=== PATIENT | female | born 1975 | race Caucasian/White ===

== ENCOUNTER 2016-11-30 15:04 | Emergency (ER) | payer SELFPAY ==
--- NOTE | ~2016-11-30 | ER ---
PATIENT'S NAME: JANUSZ HEBERT [facility] AGE: 41 Y [address] ROOM: [place] [address] LOCATION: [facility] ADMIT DATE: 11/30/2016 ER/Outpatient Report DISCHARGE DATE: 11/30/2016 FAMILY PHYSICIAN: Jorge Diamond MD ATTENDING PHYSICIAN: Sindy Crowley Time of Patient's Arrival: 1504 hours. Time of Patient's Evaluation: 1520 hours. CHIEF COMPLAINT: Migraine headache. HISTORY OF PRESENT ILLNESS: This is a 41-year-old female who presents to the ER. States she has developed a migraine headache approximately 8 hours prior to arrival. She has a history of migraine headaches and is similar to her previous headaches, is located on the right side of her head. It is causing her to have photophobia, nausea, and vomiting. She states that she has had no recent illness, no fever or chills. She says it has been approximately 2 years since her last headache. She states that she just started doing some Advocare and maybe that is the cause of this headache. ALLERGIES: NO KNOWN ALLERGIES. MEDICATIONS: None. PAST MEDICAL HISTORY: Migraines. PAST SURGERIES: Hysterectomy. SOCIAL HISTORY: Drinks alcohol socially. REVIEW OF SYSTEMS: A 10-point review of systems was completed and was negative with the exception of those discussed in the HPI. PHYSICAL EXAMINATION: VITAL SIGNS: Height 5 feet 5 inches stated, weight 109.2 kg taken, blood pressure is 190/109, pulse 80, respirations 22, temperature 98.5 degrees tympanically, and saturations 96% on room air. Sandra Coma Score is 15. PATIENT'S NAME: JANUSZ HEBERT [facility] AGE: 41 Y [address] ROOM: [place], [place] [address] LOCATION: [facility] ADMIT DATE: 11/30/2016 ER/Outpatient Report DISCHARGE DATE: 11/30/2016 FAMILY PHYSICIAN: Jorge Diamond MD ATTENDING PHYSICIAN: Sindy Crowley GENERAL: Alert, calm, well-developed female, in no acute distress. HEENT: Head: Normocephalic. Eyes: Pupils are equal and reactive light. Ears: TMs display good light reflexes bilaterally. Auditory canals clear. Nose: Turbinates pink with no drainage. Throat: No exudates or erythema. She does have moist mucous membranes. NECK: Supple. No lymphadenopathy. No nuchal rigidity. LUNGS: Clear to auscultation bilaterally. No wheeze or crackles. Normal respiratory effort. HEART: Regular rate and rhythm. No lifts, thrills, or murmurs. EXTREMITIES: No clubbing, cyanosis, or edema. Full range of motion of all limbs. LABORATORY DATA AND X-RAYS: None were done. IMPRESSION: Migraine headache. ASSESSMENT AND PLAN: I did review the patient's chart. The patient states the Nubain does not set well with her and she would just like something for anxiety incident. I then gave her Toradol 60 mg, Phenergan 50 mg, and Ativan 1 mg IM here in the ER. She did tolerate these well. We will dismiss her to home. She needs a rest in a quiet, dark area. Continue to push fluids, and follow up with primary care physician for followup care. The patient understands and agrees with care. KYLAH TIPTON PA-C FOR MD JOSE ANTONIO MALONE/amanda /[id number] d: 12/01/16 0012 t: 12/05/16 0647, OUTPATIENT REPORT
== END 2016-11-30 16:00 | disposition disaster alternative care site (69) ==
LOC: GMED 15:04
DX: G43.909 Migraine, unspecified, not intractable, without status migrainosus (principal); Z90.710 Acquired absence of both cervix and uterus
CPT/HCPCS: J1885; J2060; J2550

== ENCOUNTER 2017-05-01 09:15 | Emergency (ER) | payer SELFPAY ==
--- NOTE | ~2017-05-01 | ER ---
PATIENT'S NAME: JANUSZ SULLIVAN [facility] AGE: 41 Y [address] ROOM: [place] [id number] LOCATION: [facility] ADMIT DATE: 05/01/2017 ER/Outpatient Report DISCHARGE DATE: 05/01/2017 FAMILY PHYSICIAN: Jorge Diamond MD ATTENDING PHYSICIAN: Chano Templeton CHIEF COMPLAINT: Migraine. HISTORY OF PRESENT ILLNESS: Ms. uSllivan presents for evaluation of migraine. She has had these migraines in the past but has been doing well except for about a few weeks ago she had a similar episode. Prior to that it had been about 2 years since her last migraine. She states this is her typical headache. The headache starts in the middle of the night, typically wakes her up, causes some neck discomfort and mild photophobia. There is absolutely nothing new about this headache after pressing the patient for this. She is requesting her usual cocktail to break her headache and to be discharged. She describes this as a regular headache, it is not thunderclap, in is not sudden onset. She denies any difficulty doing any tasks and has no focal deficits. PAST MEDICAL HISTORY: Documented on the record and reviewed by me. SOCIAL HISTORY: Documented on the record and reviewed by me. MEDICATIONS: Documented on the record and reviewed by me. ALLERGIES: DOCUMENTED ON THE RECORD AND REVIEWED BY ME. REVIEW OF SYSTEMS: All systems were reviewed and negative except as noted in the HPI. PHYSICAL EXAMINATION: VITAL SIGNS: Blood pressure is 182/111, pulse 80, respiratory rate 16, temperature 97.1, SpO2 is 99% on room air. Pain is rated 8/10. GENERAL: An age appropriate female, sitting upright in a somewhat darkened room, in no apparent pain or distress. NEUROLOGIC: Awake and alert. GCS 15. No focal deficits. No asymmetry. HEENT: Normocephalic, atraumatic. Eyes are PERRL. The oropharynx is clear. NECK: Supple with full range of motion. No meningismus. EXTREMITIES: Warm, well formed, and well perfused with no obvious PATIENT'S NAME: JANUSZ SULLIVAN [facility] AGE: 41 Y [address] ROOM: [place], [place] [address] LOCATION: [facility] ADMIT DATE: 05/01/2017 ER/Outpatient Report DISCHARGE DATE: 05/01/2017 FAMILY PHYSICIAN: Jorge Diamond MD ATTENDING PHYSICIAN: Chano Templeton abnormalities. HEART: Regular rate and rhythm with no murmurs. LUNGS: Clear to auscultation bilateral with no rhonchi, wheezes, or rales. ABDOMEN: Soft, nontender, with no obvious abnormalities. Back is normal to inspection and palpation. SKIN: Grossly intact. LABORATORY DATA AND X-RAYS: None. IMPRESSION: Typical migraine. EMERGENCY DEPARTMENT COURSE: The patient was seen and evaluated at bedside. She was given her typical cocktail of Toradol, Ativan, and Phenergan IM at 60, 1 mg, and 50 mg respectively. I offered to give her some fluids and have her stay to verify improvement. The patient kindly declined and stated she will follow up if needed. All questions were answered, and the patient was discharged. I do not think this is meningitis or subarachnoid hemorrhage or other insidious cause of her headache based on her history. MD RAYMOND YAENZ/nicholel /[id number] d: t: 05/01/17 2345, OUTPATIENT REPORT
== END 2017-05-01 09:56 | disposition disaster alternative care site (69) ==
LOC: GMED 09:15
DX: G43.909 Migraine, unspecified, not intractable, without status migrainosus (principal); Z90.710 Acquired absence of both cervix and uterus; Z79.899 Other long term (current) drug therapy
CPT/HCPCS: J1885; J2060; J2550